=== PATIENT | female | born 1990 | race Caucasian/White ===

== ENCOUNTER 2020-07-23 10:02 | Outpatient (CLI) | payer BC | END 2020-07-23 10:03 | disposition home or self-care (01) | LOC: PET 10:02 | PROVIDERS: ATTEND Internal Medicine Hematology & Oncology | DX: C50.911 Malignant neoplasm of unspecified site of right female breast (principal); C78.7 Secondary malignant neoplasm of liver and intrahepatic bile duct; R59.0 Localized enlarged lymph nodes; R91.8 Other nonspecific abnormal finding of lung field | CPT/HCPCS: 78815; A9552 ==

== ENCOUNTER 2020-12-18 11:34 | Inpatient (IN) | payer BC ==
[2020-12-18] MEDS ORDERED: ALPRAZolam 0.5 MG TAB ONE (12:47)
[2020-12-18] MEDS ORDERED: Morphine 4 MG/ML VIAL ONE (12:47)
[2020-12-18 13:47] LABS: Hemoglobin 14.4 g/dL (12.0-16.0); Mean Corpuscular HGB CONC 33.4 g/dL (32.0-36.0); Mean Corpuscular Hemoglobin 30.7 pg (27.0-31.0); Mean Platelet Volume 7.1 fL (7.4-10.4); Platelet Count 456 thou/uL (130-400); RBC Distribution Width 10.9 % (11.5-14.5)
[2020-12-18 13:53] LABS: BHCG - Serum Negative (NEGATIVE); Pregs Control Background? CLEAR/WHITE (CLR/WHITE); Pregs Control Bar Appear? YES (CONTROL BAR)
[2020-12-18 14:03] LABS: ALT (SGPT) 16 U/L (8-55); AST (SGOT) 15 U/L (5-34); Albumin 3.5 g/dL (3.5-5.0); Alkaline Phosphatase 78 U/L (40-110); Anion Gap 12 mmol/L (10-20); BUN (Urea Nitrogen) 17 mg/dL (7.0-18.7); Bilirubin, Total 0.3 mg/dL (0.2-1.2); Calc. Creatinine Clearance 0 mL/min (70-130); Calcium 8.7 mg/dL (7.8-10.44); Carbon Dioxide 25 mmol/L (22-29); Chloride 103 mmol/L (98-107); Globulin 2.6 g/dL (2.4-3.5); Glucose 79 mg/dL (70-105); Potassium 4.3 mmol/L (3.5-5.1); Protein, Total 6.1 g/dL (6.0-8.3); Sodium 136 mmol/L (136-145)
[2020-12-18 14:31] LABS: Band 4 % (5-11); Lymphocytes 18 % (21-51); MDiff Complete? YES; Monocytes 17 % (0-10); Neutrophil 57 % (42-75); Platelet Morphology Comment Appears Increased; RBC Morphology Normal; Reactive Lymphocytes 4 % (0-10)
[2020-12-18] MEDS ORDERED: Iopamidol-370 76% 500 ML 1 ML ONE (14:50)
[2020-12-18] MEDS ORDERED: cefTRIAXone\\ROCEPHIN 1 GM VIAL ONE (15:04)
[2020-12-18 16:33] LABS: SARS-CoV-2 NAA Rapid Test Not Detected (NotDetected)
[2020-12-18 18:28] VITALS: BMI 16.5
[2020-12-18] MEDS ORDERED: Acetaminophen 325 MG TAB PO PRN (18:50)
[2020-12-18] MEDS ORDERED: HYDROcodone/Acetaminophen 5/325 mg Tablet PO PRN (18:50)
[2020-12-18] MEDS ORDERED: Bisacodyl 5 MG TAB PO PRN (18:50)
[2020-12-18] MEDS ORDERED: Ondansetron PF 4 MG/2 ML Vial IVP PRN (18:50)
[2020-12-18] MEDS ORDERED: HYDROcodone/Acetaminophen 10/325 mg Tablet PO PRN (18:50)
[2020-12-18] MEDS ORDERED: Senokot S 8.6-50 MG TAB PO PRN (18:50)
[2020-12-18] MEDS ORDERED: hydrOXYzine 25 MG TAB PO PRN (19:08)
[2020-12-18] MEDS ORDERED: traZODone HCl 50 MG TAB PO PRN (19:09)
[2020-12-18] MEDS ORDERED: Melatonin 3 MG TAB PO PRN (19:09)
[2020-12-18] MEDS ORDERED: ALPRAZolam 1 MG TAB PO SCH (19:30)
[2020-12-18] MEDS: methylPREDNISolone Sod Succ 40 MG VIAL IVP SCH (21:34)
[2020-12-19 05:50] LABS: #Lymphocytes 1.1 thou/uL (1.20-3.40); #Monocytes 0.6 thou/uL (0.11-0.59); #Neutrophils 5.4 thou/uL (1.40-6.50); %Basophils 0.5 % (0.0-1.0); %Eosinophils 0.1 % (0.0-10.0); %Lymphocytes 15.2 % (21.0-51.0); %Monocytes 7.7 % (0.0-10.0); %Neutrophils 76.4 % (42.0-75.0); Hemoglobin 14.7 g/dL (12.0-16.0); Mean Corpuscular HGB CONC 34.4 g/dL (32.0-36.0); Mean Corpuscular Hemoglobin 31.9 pg (27.0-31.0); Mean Corpuscular Volume 92.8 fL (78.0-98.0); Mean Platelet Volume 7.1 fL (7.4-10.4); Platelet Count 423 thou/uL (130-400); RBC Distribution Width 10.8 % (11.5-14.5); Red Blood Cell (RBC) Count 4.62 mill/uL (4.20-5.40)
[2020-12-19 06:03] LABS: Prothrombin Time 12.8 sec (12.0-14.7)
[2020-12-19 06:13] LABS: ALT (SGPT) 12 U/L (8-55); AST (SGOT) 13 U/L (5-34); Albumin 3.4 g/dL (3.5-5.0); Alkaline Phosphatase 78 U/L (40-110); Anion Gap 13 mmol/L (10-20); BUN (Urea Nitrogen) 16 mg/dL (7.0-18.7); Bilirubin, Total 0.5 mg/dL (0.2-1.2); Calc. Creatinine Clearance 78 mL/min (70-130); Calcium 9.1 mg/dL (7.8-10.44); Carbon Dioxide 26 mmol/L (22-29); Chloride 100 mmol/L (98-107); Globulin 2.5 g/dL (2.4-3.5); Glucose 103 mg/dL (70-105); Potassium 4.5 mmol/L (3.5-5.1); Protein, Total 5.9 g/dL (6.0-8.3); Sodium 134 mmol/L (136-145)
[2020-12-19] MEDS ORDERED: Prevnar 13-Val Conj/PF 0.5 ML SYRINGE IM ONE (09:00)
[2020-12-19] MEDS: methylPREDNISolone Sod Succ 40 MG VIAL IVP SCH ×2 (09:41→20:16)
[2020-12-19] MEDS ORDERED: cefTRIAXone\\ROCEPHIN 2 GM in Sodium Chloride 0.9% 100 ML IVPB SCH (15:00)
[2020-12-19] MEDS ORDERED: Morphine 2 MG/ML VIAL SLOW IVP PRN (15:19)
[2020-12-19] MEDS: Morphine 4 MG/ML VIAL SLOW IVP PRN ×2 (15:34→20:17)
[2020-12-19] MEDS ORDERED: Sodium Chloride 0.65% Nasal 44 ML BOT EA NARE PRN (18:29)
[2020-12-19] MEDS ORDERED: Electrolyte Replacement Protocol 1 EACH FS SCH (20:00)
[2020-12-20] MEDS: Morphine 4 MG/ML VIAL SLOW IVP PRN ×4 (01:15→23:38)
[2020-12-20 05:25] LABS: #Lymphocytes 0.7 thou/uL (1.20-3.40); #Monocytes 0.8 thou/uL (0.11-0.59); #Neutrophils 8.5 thou/uL (1.40-6.50); %Basophils 0.2 % (0.0-1.0); %Eosinophils 0.2 % (0.0-10.0); %Lymphocytes 7.1 % (21.0-51.0); %Monocytes 7.8 % (0.0-10.0); %Neutrophils 84.7 % (42.0-75.0); Hemoglobin 15.1 g/dL (12.0-16.0); Mean Corpuscular HGB CONC 33.9 g/dL (32.0-36.0); Mean Corpuscular Hemoglobin 31.3 pg (27.0-31.0); Mean Corpuscular Volume 92.3 fL (78.0-98.0); Mean Platelet Volume 7.2 fL (7.4-10.4); Platelet Count 442 thou/uL (130-400); Red Blood Cell (RBC) Count 4.83 mill/uL (4.20-5.40); White Blood Cell (WBC) Count 10.1 thou/uL (4.8-10.8)
[2020-12-20 05:48] LABS: ALT (SGPT) 13 U/L (8-55); AST (SGOT) 15 U/L (5-34); Albumin 3.5 g/dL (3.5-5.0); Alkaline Phosphatase 84 U/L (40-110); Anion Gap 14 mmol/L (10-20); BUN (Urea Nitrogen) 17 mg/dL (7.0-18.7); Bilirubin, Total 0.3 mg/dL (0.2-1.2); Calc. Creatinine Clearance 72 mL/min (70-130); Calcium 9.3 mg/dL (7.8-10.44); Carbon Dioxide 27 mmol/L (22-29); Chloride 97 mmol/L (98-107); Globulin 2.7 g/dL (2.4-3.5); Glucose 116 mg/dL (70-105); Magnesium 2.1 mg/dL (1.6-2.6); Phosphorus 4.3 mg/dL (2.3-4.7); Potassium 4.4 mmol/L (3.5-5.1); Protein, Total 6.2 g/dL (6.0-8.3); Sodium 134 mmol/L (136-145)
[2020-12-20] MEDS ORDERED: Sodium Bicarbonate 2.5 MEQ/5 ML VIAL ONE (10:16)
[2020-12-20] MEDS ORDERED: Lidocaine 1% PF 5 ML VIAL ONE (10:16)
[2020-12-20 11:48] LABS: Fluid, pH - Pleural Fld Greater than 7.50 (7.60 - 7.66)
[2020-12-20 11:50] LABS: Pleural Fluid, Amylase Less than 30 U/L (Not Available); Pleural Fluid, Glucose 105 mg/dL; Pleural Fluid, LDH 224 U/L (Not Available); Pleural Fluid, Protein 3.3 g/dL
[2020-12-20 12:13] LABS: RBC Count-Automated (BF) 300 /cu.mm; WBC/Nucleated-Auto (BF) 890 uL
[2020-12-20] MEDS: Lorazepam 0.5 MG TAB PO PRN (13:10)
[2020-12-20] MEDS: methylPREDNISolone Sod Succ 40 MG VIAL IVP SCH ×2 (13:13→23:39)
[2020-12-20 13:14] LABS: BF Color Yellow; Body Fluid Source Pleural Fluid; Clarity Hazy (Clear); Tube # EDTA
[2020-12-20 13:17] LABS: BF Segmented Neutrophils 3 %; Cell Count Non Hematic 28 %; Lymphocytes 69 %
[2020-12-20] MEDS: Folic Acid 1 MG TAB PO SCH (21:28)
[2020-12-20] MEDS: Cyanocobalamin (Vitamin B-12) 1,000 MCG TAB PO SCH (21:28)
[2020-12-21 08:11] LABS: #Lymphocytes 0.8 thou/uL (1.20-3.40); #Monocytes 0.4 thou/uL (0.11-0.59); %Basophils 0.1 % (0.0-1.0); %Eosinophils 0.2 % (0.0-10.0); %Lymphocytes 6.8 % (21.0-51.0); %Monocytes 3.8 % (0.0-10.0); %Neutrophils 89.1 % (42.0-75.0); Hemoglobin 15.6 g/dL (12.0-16.0); Mean Corpuscular HGB CONC 34.5 g/dL (32.0-36.0); Mean Corpuscular Volume 92.6 fL (78.0-98.0); Mean Platelet Volume 7.3 fL (7.4-10.4); Platelet Count 444 thou/uL (130-400); Red Blood Cell (RBC) Count 4.87 mill/uL (4.20-5.40); White Blood Cell (WBC) Count 11.2 thou/uL (4.8-10.8)
[2020-12-21 08:27] LABS: Anion Gap 10 mmol/L (10-20); BUN (Urea Nitrogen) 16 mg/dL (7.0-18.7); Calc. Creatinine Clearance 78 mL/min (70-130); Calcium 9.6 mg/dL (7.8-10.44); Carbon Dioxide 30 mmol/L (22-29); Chloride 96 mmol/L (98-107); Glucose 121 mg/dL (70-105); Potassium 4.6 mmol/L (3.5-5.1); Sodium 131 mmol/L (136-145)
[2020-12-21] MEDS: Multivit, Therapeutic 1 TAB PO SCH (08:54)
[2020-12-21] MEDS: methylPREDNISolone Sod Succ 40 MG VIAL IVP SCH ×2 (08:54→21:49)
[2020-12-21] MEDS: Morphine 4 MG/ML VIAL SLOW IVP PRN (12:20)
[2020-12-21] MEDS: Heparin 5,000 UNITS/ML VIAL SC SCH ×2 (12:35→21:54)
[2020-12-21] MEDS ORDERED: Chloraseptic Spray 180 ml Bottle PO PRN (15:01)
[2020-12-21] MEDS ORDERED: Aluminum & Magnesium Hydroxide 60 ML, diphenhydrAMINE 150 MG, Lidocaine 2% Viscous Solu... SSW PRN (15:03)
[2020-12-21] MEDS: Lorazepam 0.5 MG TAB PO PRN (15:23)
[2020-12-21] MEDS: Sodium Chloride 0.9% 1,000 ML IV SCH (15:50)
[2020-12-21] MEDS: HYDROcodone/Acetaminophen 10/325 mg Tablet PO PRN ×2 (18:09→21:48)
[2020-12-21] MEDS: Cyanocobalamin (Vitamin B-12) 1,000 MCG TAB PO SCH (21:49)
[2020-12-21] MEDS: Folic Acid 1 MG TAB PO SCH (21:54)
[2020-12-21] MEDS: Chloraseptic Spray 180 ml Bottle PO PRN (22:06)
[2020-12-22] MEDS: HYDROcodone/Acetaminophen 10/325 mg Tablet PO PRN (04:42)
[2020-12-22] MEDS: Sodium Chloride 0.9% 1,000 ML IV SCH (08:37)
[2020-12-22] MEDS: Multivit, Therapeutic 1 TAB PO SCH (08:40)
[2020-12-22] MEDS: methylPREDNISolone Sod Succ 40 MG VIAL IVP SCH ×2 (08:41→20:43)
[2020-12-22] MEDS: Heparin 5,000 UNITS/ML VIAL SC SCH ×2 (08:42→20:44)
[2020-12-22] MEDS: Chloraseptic Spray 180 ml Bottle PO PRN ×2 (08:43→20:44)
[2020-12-22] MEDS: Morphine 4 MG/ML VIAL SLOW IVP PRN ×4 (11:13→23:14)
[2020-12-22] MEDS: Lorazepam 0.5 MG TAB PO PRN ×2 (11:14→23:13)
[2020-12-22] MEDS: Folic Acid 1 MG TAB PO SCH (20:43)
[2020-12-22] MEDS: Cyanocobalamin (Vitamin B-12) 1,000 MCG TAB PO SCH (20:45)
[2020-12-23] MEDS: Lorazepam 0.5 MG TAB PO PRN ×2 (07:10→15:31)
[2020-12-23] MEDS: Morphine 4 MG/ML VIAL SLOW IVP PRN (07:11)
[2020-12-23] MEDS: methylPREDNISolone Sod Succ 40 MG VIAL IVP SCH (09:51)
[2020-12-23] MEDS: Multivit, Therapeutic 1 TAB PO SCH (09:51)
[2020-12-23] MEDS: Heparin 5,000 UNITS/ML VIAL SC SCH (09:56)
[2020-12-23] MEDS ORDERED: Sodium Chloride 0.9% 1,000 ML IV SCH (12:45)
[2020-12-23] MEDS: Chloraseptic Spray 180 ml Bottle PO PRN (14:02)
[2020-12-23 16:55] VITALS: BP 126/99; TEMP 98.6
== END 2020-12-23 17:45 | disposition home health service (06) | DRG 180 ==
LOC: ERS 11:34 → 2NO 15:16 → OBSVTOIN 12-19 14:42
PROVIDERS: ADMIT Family Medicine; ATTEND Hospitalist
PROC: 0W993ZZ Drainage of Right Pleural Cavity, Percutaneous Approach (ICD-10-PCS; principal; 2020-12-20)
DX: C78.2 Secondary malignant neoplasm of pleura (principal); J18.9 Pneumonia, unspecified organism; J96.01 Acute respiratory failure with hypoxia; E43 Unspecified severe protein-calorie malnutrition; I31.3 Pericardial effusion (noninflammatory); R64 Cachexia; Z68.1 Body mass index [BMI] 19.9 or less, adult; C78.00 Secondary malignant neoplasm of unspecified lung; C78.7 Secondary malignant neoplasm of liver and intrahepatic bile duct; C79.51 Secondary malignant neoplasm of bone; J91.0 Malignant pleural effusion; F41.9 Anxiety disorder, unspecified; F32.A Depression, unspecified; Z20.822 Contact with and (suspected) exposure to COVID-19; C50.919 Malignant neoplasm of unspecified site of unspecified female breast; E05.90 Thyrotoxicosis, unspecified without thyrotoxic crisis or storm; Z79.899 Other long term (current) drug therapy
CPT/HCPCS: 36415; 71045; 71046; 71275; 76942; 80048; 80053; 82150; 82945; 83605; 83615; 83735; 83880; 83986; 84100; 84157; 84484; 84703; 85025; 85060; 85610; 86606; 87070; 87205; 88112; 88305; 88341; 88342; 89051; 93005; 93306; 96365; 96375; G0378; J0696; J1644; J1956; J2270; J2405; J2920; J3490; J7050; Q0163; Q9967; U0002

== ENCOUNTER 2020-12-25 06:43 | Inpatient (IN) | payer BC ==
[2020-12-25] MEDS ORDERED: Lorazepam 2 MG/ML VIAL ONE (07:31)
[2020-12-25 07:49] LABS: #Basophils 0.1 thou/uL (0.0-0.2); #Lymphocytes 1.3 thou/uL (1.20-3.40); #Monocytes 1.1 thou/uL (0.11-0.59); #Neutrophils 14.4 thou/uL (1.40-6.50); %Basophils 0.5 % (0.0-1.0); %Eosinophils 0.3 % (0.0-10.0); %Lymphocytes 7.6 % (21.0-51.0); %Monocytes 6.2 % (0.0-10.0); %Neutrophils 85.4 % (42.0-75.0); Hemoglobin 15.5 g/dL (12.0-16.0); Mean Corpuscular Volume 88.4 fL (78.0-98.0); Platelet Count 396 thou/uL (130-400); RBC Distribution Width 10.8 % (11.5-14.5); Red Blood Cell (RBC) Count 5.01 mill/uL (4.20-5.40); White Blood Cell (WBC) Count 16.9 thou/uL (4.8-10.8)
[2020-12-25 08:07] LABS: ALT (SGPT) 30 U/L (8-55); AST (SGOT) 26 U/L (5-34); Albumin 3.7 g/dL (3.5-5.0); Alkaline Phosphatase 87 U/L (40-110); Anion Gap 10 mmol/L (10-20); BUN (Urea Nitrogen) 11 mg/dL (7.0-18.7); Bilirubin, Total 1.7 mg/dL (0.2-1.2); Calc. Creatinine Clearance 0 mL/min (70-130); Carbon Dioxide 29 mmol/L (22-29); Chloride 81 mmol/L (98-107); Globulin 2.7 g/dL (2.4-3.5); Glucose 111 mg/dL (70-105); Lipase 19 U/L (8-78); Protein, Total 6.4 g/dL (6.0-8.3)
[2020-12-25 08:13] LABS: Sodium 116 mmol/L (136-145)
[2020-12-25] MEDS ORDERED: Ondansetron PF 4 MG/2 ML Vial ONE (08:33)
[2020-12-25] MEDS ORDERED: Iopamidol-370 76% 500 ML 1 ML ONE (09:30)
[2020-12-25] MEDS ORDERED: HYDROcodone/Acetaminophen 5/325 mg Tablet PO PRN (10:28)
[2020-12-25] MEDS ORDERED: Calcium Carbonate 500 MG ChewTAB PO PRN (10:28)
[2020-12-25] MEDS ORDERED: Bisacodyl 10 MG SUPP PR PRN (10:28)
[2020-12-25] MEDS ORDERED: Guaifenesin DM 100-10/5 ML UDCUP PO PRN (10:28)
[2020-12-25] MEDS: Morphine IR Tab 15 MG TAB PO SCH ×2 (12:11→18:17)
[2020-12-25] MEDS: Lorazepam 0.5 MG TAB PO PRN ×2 (13:10→19:35)
[2020-12-25] MEDS: Ondansetron PF 4 MG/2 ML Vial IVP PRN (13:22)
[2020-12-25 15:51] LABS: SARS-CoV-2 NAA Rapid Test Not Detected (NotDetected)
[2020-12-25 18:39] LABS: Anion Gap 12 mmol/L (10-20); BUN (Urea Nitrogen) 11 mg/dL (7.0-18.7); Calc. Creatinine Clearance 84 mL/min (70-130); Calcium 8.7 mg/dL (7.8-10.44); Carbon Dioxide 28 mmol/L (22-29); Chloride 83 mmol/L (98-107); Glucose 124 mg/dL (70-105)
[2020-12-25 19:02] LABS: Sodium 119 mmol/L (136-145)
[2020-12-25 19:51] LABS: Bacteria/HPF None Seen HPF (None Seen); Bilirubin Negative (Negative); Blood, Urine Negative (Negative); Clarity Turbid (Clear); Glucose, Urine (Dipstick) Normal (Negative); Ketone, Urine 10 mg/dL (Negative); Leukocyte Negative Leu/uL (Negative); Nitrite Negative (Negative); Protein, Urine (Dipstick) Negative (Neg-Trace); RBC/HPF 0-3 HPF (0-3); Squamous Epithelial 0-3 HPF (0-3); Urobilinogen Normal mg/dL (Less than 2); WBC/HPF 0-3 HPF (0-3); pH, Urine 7.5 (5.0-9.0)
[2020-12-25] MEDS: Morphine ER 15 MG TAB PO SCH (21:29)
[2020-12-25] MEDS: Senokot S 8.6-50 MG TAB PO SCH (21:29)
[2020-12-26] MEDS: Morphine IR Tab 15 MG TAB PO SCH ×2 (01:58→06:18)
[2020-12-26 04:53] LABS: Albumin 3.5 g/dL (3.5-5.0); Anion Gap 14 mmol/L (10-20); BUN (Urea Nitrogen) 12 mg/dL (7.0-18.7); BUN/Creatinine Ratio 19.35; Calc. Creatinine Clearance 83 mL/min (70-130); Calcium 8.7 mg/dL (7.8-10.44); Carbon Dioxide 26 mmol/L (22-29); Chloride 83 mmol/L (98-107); Glucose 99 mg/dL (70-105); Phosphorus 3.4 mg/dL (2.3-4.7); Potassium 4.9 mmol/L (3.5-5.1)
[2020-12-26 04:56] LABS: Sodium 118 mmol/L (136-145)
[2020-12-26 05:33] LABS: #Basophils 0.1 thou/uL (0.0-0.2); #Eosinphils 0.1 thou/uL (0.0-0.7); #Lymphocytes 1.6 thou/uL (1.20-3.40); #Monocytes 1.7 thou/uL (0.11-0.59); #Neutrophils 13.5 thou/uL (1.40-6.50); %Basophils 0.5 % (0.0-1.0); %Eosinophils 0.6 % (0.0-10.0); %Lymphocytes 9.3 % (21.0-51.0); %Monocytes 10.1 % (0.0-10.0); %Neutrophils 79.5 % (42.0-75.0); Hemoglobin 14.2 g/dL (12.0-16.0); Mean Corpuscular HGB CONC 35.1 g/dL (32.0-36.0); Mean Corpuscular Hemoglobin 30.8 pg (27.0-31.0); Mean Corpuscular Volume 87.8 fL (78.0-98.0); Mean Platelet Volume 7.6 fL (7.4-10.4); Platelet Count 375 thou/uL (130-400); RBC Distribution Width 10.8 % (11.5-14.5)
[2020-12-26] MEDS ORDERED: TOLVAPTAN 30 MG TAB PO SCH (08:45)
[2020-12-26] MEDS: Senokot S 8.6-50 MG TAB PO SCH ×2 (09:37→20:56)
[2020-12-26] MEDS: Enoxaparin Sodium 40 MG/0.4 ML SYRINGE SC SCH (09:50)
[2020-12-26] MEDS: Morphine ER 15 MG TAB PO SCH (09:50)
[2020-12-26 09:59] LABS: Anion Gap 11 mmol/L (10-20); BUN (Urea Nitrogen) 11 mg/dL (7.0-18.7); Calc. Creatinine Clearance 92 mL/min (70-130); Calcium 8.3 mg/dL (7.8-10.44); Carbon Dioxide 25 mmol/L (22-29); Chloride 83 mmol/L (98-107); Glucose 101 mg/dL (70-105); Potassium 4.5 mmol/L (3.5-5.1)
[2020-12-26 10:06] LABS: Sodium 114 mmol/L (136-145)
[2020-12-26 13:17] LABS: Anion Gap 13 mmol/L (10-20); BUN (Urea Nitrogen) 11 mg/dL (7.0-18.7); Calc. Creatinine Clearance 88 mL/min (70-130); Calcium 8.5 mg/dL (7.8-10.44); Carbon Dioxide 26 mmol/L (22-29); Chloride 81 mmol/L (98-107); Glucose 104 mg/dL (70-105); Magnesium 1.9 mg/dL (1.6-2.6); Potassium 4.4 mmol/L (3.5-5.1)
[2020-12-26 13:20] LABS: Sodium 116 mmol/L (136-145)
[2020-12-26] MEDS: Lorazepam 0.5 MG TAB PO PRN (14:19)
[2020-12-26] MEDS: Morphine IR Tab 15 MG TAB PO PRN (16:06)
[2020-12-26] MEDS ORDERED: BIOTENE MOUTH SPRAY 44.3 ML MM PRN (16:18)
[2020-12-26 19:42] LABS: Anion Gap 15 mmol/L (10-20); BUN (Urea Nitrogen) 10 mg/dL (7.0-18.7); Calc. Creatinine Clearance 87 mL/min (70-130); Calcium 8.6 mg/dL (7.8-10.44); Carbon Dioxide 25 mmol/L (22-29); Chloride 79 mmol/L (98-107); Glucose 113 mg/dL (70-105); Potassium 4.9 mmol/L (3.5-5.1)
[2020-12-26 20:04] LABS: Sodium 114 mmol/L (136-145)
[2020-12-26] MEDS ORDERED: Sodium Chloride 3% 500 ML IVPB SCH ×2 (21:45→22:00)
[2020-12-26] MEDS ORDERED: Morphine 4 MG/ML VIAL ONE (22:06)
[2020-12-26 23:39] LABS: Sodium 119 mmol/L (136-145)
[2020-12-27] MEDS: Morphine IR Tab 15 MG TAB PO PRN ×2 (01:59→10:06)
[2020-12-27 06:36] LABS: Anion Gap 18 mmol/L (10-20); BUN (Urea Nitrogen) 9 mg/dL (7.0-18.7); Calc. Creatinine Clearance 93 mL/min (70-130); Calcium 9.1 mg/dL (7.8-10.44); Carbon Dioxide 25 mmol/L (22-29); Chloride 83 mmol/L (98-107); Glucose 91 mg/dL (70-105); Potassium 4.6 mmol/L (3.5-5.1); Sodium 121 mmol/L (136-145)
[2020-12-27] MEDS ORDERED: Midazolam HCl 2 mg/2 ml Vial ONE ×2 (07:00→07:01)
[2020-12-27] MEDS ORDERED: Fentanyl 100 MCG/2 ML VIAL ONE (07:01)
[2020-12-27] MEDS ORDERED: Propofol 500 MG/50 ML VIAL ONE (07:01)
[2020-12-27] MEDS ORDERED: Ketamine 50 MG/ML (10ML VIAL) ONE (07:01)
[2020-12-27] MEDS ORDERED: ceFAZolin 2 GM/DEX 5% 100 ML BAG ONE (07:17)
[2020-12-27] MEDS ORDERED: Tolvaptan 15 MG TAB PO SCH (07:45)
[2020-12-27] MEDS ORDERED: SODIUM CHLORIDE 0.9% IVPB SCH (08:00)
[2020-12-27] MEDS ORDERED: Dexamethasone 10 MG in Sodium Chloride 0.9% 50 ML IVPB SCH (08:00)
[2020-12-27] MEDS ORDERED: PACLITAXEL IVPB SCH (08:00)
[2020-12-27] MEDS ORDERED: TOLVAPTAN 30 MG TAB PO SCH (08:30)
[2020-12-27] MEDS: Senokot S 8.6-50 MG TAB PO SCH ×2 (10:05→20:24)
[2020-12-27] MEDS: Enoxaparin Sodium 40 MG/0.4 ML SYRINGE SC SCH (10:09)
[2020-12-27 14:52] LABS: Anion Gap 18 mmol/L (10-20); BUN (Urea Nitrogen) 9 mg/dL (7.0-18.7); Calc. Creatinine Clearance 90 mL/min (70-130); Calcium 8.9 mg/dL (7.8-10.44); Carbon Dioxide 24 mmol/L (22-29); Chloride 88 mmol/L (98-107); Glucose 116 mg/dL (70-105); Potassium 4.5 mmol/L (3.5-5.1); Sodium 125 mmol/L (136-145)
[2020-12-27] MEDS: Lorazepam 0.5 MG TAB PO PRN (14:56)
[2020-12-27] MEDS: Dronabinol 2.5 MG CAP PO PRN (16:38)
[2020-12-27] MEDS: clonazePAM 0.5 MG TAB PO SCH ×2 (22:40→23:10)
[2020-12-28] MEDS ORDERED: Metoprolol Tartrate 50 MG TAB PO SCH (01:30)
[2020-12-28] MEDS: Prochlorperazine Maleate 5 MG TAB PO PRN (05:04)
[2020-12-28 05:49] LABS: Anion Gap 15 mmol/L (10-20); BUN (Urea Nitrogen) 11 mg/dL (7.0-18.7); Calc. Creatinine Clearance 84 mL/min (70-130); Calcium 9.2 mg/dL (7.8-10.44); Carbon Dioxide 30 mmol/L (22-29); Chloride 98 mmol/L (98-107); Glucose 116 mg/dL (70-105); Potassium 4.7 mmol/L (3.5-5.1); Sodium 138 mmol/L (136-145)
[2020-12-28] MEDS: Morphine IR Tab 15 MG TAB PO PRN (05:50)
[2020-12-28] MEDS: Enoxaparin Sodium 40 MG/0.4 ML SYRINGE SC SCH (10:06)
[2020-12-28] MEDS: clonazePAM 0.5 MG TAB PO SCH ×2 (10:06→22:00)
[2020-12-28] MEDS: Senokot S 8.6-50 MG TAB PO SCH ×2 (10:07→22:01)
[2020-12-28] MEDS ORDERED: Furosemide 40 MG/4 ML VIAL SLOW IVP SCH (10:30)
[2020-12-28] MEDS ORDERED: Dextrose 5% in Water 1,000 ML IV SCH (10:45)
[2020-12-28] MEDS: Acetaminophen 325 MG TAB PO PRN ×2 (11:47→19:04)
[2020-12-28 13:02] LABS: Hemoglobin 13.3 g/dL (12.0-16.0); Mean Corpuscular HGB CONC 35.5 g/dL (32.0-36.0); Mean Corpuscular Hemoglobin 32.3 pg (27.0-31.0); Mean Corpuscular Volume 90.9 fL (78.0-98.0); Mean Platelet Volume 8.1 fL (7.4-10.4); Platelet Count 267 thou/uL (130-400); RBC Distribution Width 11.3 % (11.5-14.5); Red Blood Cell (RBC) Count 4.12 mill/uL (4.20-5.40); White Blood Cell (WBC) Count 22.3 thou/uL (4.8-10.8)
[2020-12-28 13:21] LABS: Band 4 % (5-11); MDiff Complete? YES; Monocytes 4 % (0-10); Neutrophil 90 % (42-75); Platelet Morphology Comment Appears Adequate; RBC Morphology Normal; Reactive Lymphocytes 2 % (0-10)
[2020-12-28 13:22] LABS: Anion Gap 13 mmol/L (10-20); BUN (Urea Nitrogen) 12 mg/dL (7.0-18.7); Calc. Creatinine Clearance 79 mL/min (70-130); Carbon Dioxide 30 mmol/L (22-29); Chloride 95 mmol/L (98-107); Glucose 189 mg/dL (70-105); Potassium 4.2 mmol/L (3.5-5.1); Sodium 134 mmol/L (136-145)
[2020-12-28 16:54] LABS: Anion Gap 11 mmol/L (10-20); BUN (Urea Nitrogen) 10 mg/dL (7.0-18.7); Calc. Creatinine Clearance 89 mL/min (70-130); Carbon Dioxide 31 mmol/L (22-29); Chloride 94 mmol/L (98-107); Glucose 127 mg/dL (70-105); Potassium 4.1 mmol/L (3.5-5.1); Sodium 132 mmol/L (136-145)
[2020-12-28] MEDS: Dronabinol 2.5 MG CAP PO PRN (19:04)
[2020-12-28] MEDS: Ondansetron PF 4 MG/2 ML Vial IVP PRN (20:59)
[2020-12-28] MEDS ORDERED: Morphine 4 MG/ML VIAL SLOW IVP PRN (21:48)
[2020-12-28] MEDS: Morphine 4 MG/ML VIAL SLOW IVP PRN ×2 (22:00→23:52)
[2020-12-29] MEDS: Morphine 4 MG/ML VIAL SLOW IVP PRN ×4 (04:02→21:28)
[2020-12-29 04:04] LABS: #Lymphocytes 1.2 thou/uL (1.20-3.40); #Monocytes 0.8 thou/uL (0.11-0.59); #Neutrophils 13.8 thou/uL (1.40-6.50); %Basophils 0.2 % (0.0-1.0); %Eosinophils 0.1 % (0.0-10.0); %Lymphocytes 7.6 % (21.0-51.0); %Monocytes 4.8 % (0.0-10.0); %Neutrophils 87.3 % (42.0-75.0); Hemoglobin 12.9 g/dL (12.0-16.0); Mean Corpuscular HGB CONC 35.4 g/dL (32.0-36.0); Mean Corpuscular Hemoglobin 32.2 pg (27.0-31.0); Mean Corpuscular Volume 90.9 fL (78.0-98.0); Mean Platelet Volume 8.2 fL (7.4-10.4); Platelet Count 266 thou/uL (130-400); RBC Distribution Width 11.2 % (11.5-14.5); Red Blood Cell (RBC) Count 3.99 mill/uL (4.20-5.40); White Blood Cell (WBC) Count 15.9 thou/uL (4.8-10.8)
[2020-12-29 04:21] LABS: Anion Gap 12 mmol/L (10-20); BUN (Urea Nitrogen) 9 mg/dL (7.0-18.7); Calc. Creatinine Clearance 94 mL/min (70-130); Calcium 8.7 mg/dL (7.8-10.44); Carbon Dioxide 32 mmol/L (22-29); Chloride 95 mmol/L (98-107); Glucose 104 mg/dL (70-105); Potassium 4.2 mmol/L (3.5-5.1); Sodium 135 mmol/L (136-145)
[2020-12-29] MEDS: Senokot S 8.6-50 MG TAB PO SCH ×2 (09:28→21:16)
[2020-12-29] MEDS: clonazePAM 0.5 MG TAB PO SCH ×2 (09:38→22:13)
[2020-12-29] MEDS: Enoxaparin Sodium 40 MG/0.4 ML SYRINGE SC SCH (13:02)
[2020-12-29] MEDS: Acetaminophen 325 MG TAB PO PRN (14:08)
[2020-12-29] MEDS ORDERED: Nystatin 500,000 UNITS/5 ML UDCUP SSW SCH (15:30)
[2020-12-29] MEDS: Nystatin 500,000 UNITS/5 ML UDCUP SSW SCH ×2 (17:43→21:17)
[2020-12-29] MEDS ORDERED: Metoprolol Tartrate 50 MG TAB PO SCH (21:15)
[2020-12-30] MEDS: Morphine 4 MG/ML VIAL SLOW IVP PRN ×3 (04:00→21:42)
[2020-12-30 04:28] LABS: %Eosinophils 0.5 % (0.0-10.0); %Lymphocytes 8.2 % (21.0-51.0); %Monocytes 3.2 % (0.0-10.0); %Neutrophils 87.7 % (42.0-75.0); Hemoglobin 12.9 g/dL (12.0-16.0); Mean Corpuscular HGB CONC 34.5 g/dL (32.0-36.0); Mean Corpuscular Hemoglobin 31.5 pg (27.0-31.0); Mean Corpuscular Volume 91.5 fL (78.0-98.0); Platelet Count 291 thou/uL (130-400); RBC Distribution Width 11.2 % (11.5-14.5); Red Blood Cell (RBC) Count 4.08 mill/uL (4.20-5.40); White Blood Cell (WBC) Count 13.3 thou/uL (4.8-10.8)
[2020-12-30 04:29] LABS: #Basophils 0.1 thou/uL (0.0-0.2); #Eosinphils 0.1 thou/uL (0.0-0.7); #Lymphocytes 1.1 thou/uL (1.20-3.40); #Monocytes 0.4 thou/uL (0.11-0.59); #Neutrophils 11.7 thou/uL (1.40-6.50); %Basophils 0.5 % (0.0-1.0)
[2020-12-30] MEDS: Nystatin 500,000 UNITS/5 ML UDCUP SSW SCH ×4 (08:44→21:35)
[2020-12-30] MEDS: Enoxaparin Sodium 40 MG/0.4 ML SYRINGE SC SCH (08:45)
[2020-12-30] MEDS: clonazePAM 0.5 MG TAB PO SCH ×2 (08:45→21:39)
[2020-12-30] MEDS: Senokot S 8.6-50 MG TAB PO SCH ×2 (11:47→21:35)
[2020-12-30] MEDS ORDERED: methylPREDNISolone Sod Succ/PF 125 MG/2 ML VIAL IVP SCH (13:30)
[2020-12-30 14:51] VITALS: BMI 16.2
[2020-12-30] MEDS ORDERED: Metoprolol Tartrate 50 MG TAB PO SCH (19:45)
[2020-12-31 04:48] LABS: #Lymphocytes 0.4 thou/uL (1.20-3.40); #Neutrophils 3.8 thou/uL (1.40-6.50); %Basophils 0.5 % (0.0-1.0); %Eosinophils 0.2 % (0.0-10.0); %Lymphocytes 8.7 % (21.0-51.0); %Monocytes 0.5 % (0.0-10.0); %Neutrophils 90.1 % (42.0-75.0); Hemoglobin 13.9 g/dL (12.0-16.0); Mean Corpuscular HGB CONC 33.3 g/dL (32.0-36.0); Mean Corpuscular Hemoglobin 30.9 pg (27.0-31.0); Mean Corpuscular Volume 92.8 fL (78.0-98.0); Mean Platelet Volume 8.1 fL (7.4-10.4); Platelet Count 302 thou/uL (130-400); RBC Distribution Width 11.3 % (11.5-14.5); Red Blood Cell (RBC) Count 4.49 mill/uL (4.20-5.40); White Blood Cell (WBC) Count 4.3 thou/uL (4.8-10.8)
[2020-12-31] MEDS: Lorazepam 0.5 MG TAB PO PRN ×2 (05:28→13:42)
[2020-12-31] MEDS ORDERED: GUAIFENESIN SF SOLN 200 MG/10 ML UDCUP PO PRN (08:46)
[2020-12-31] MEDS: Senokot S 8.6-50 MG TAB PO SCH ×2 (08:46→21:21)
[2020-12-31] MEDS: Nystatin 500,000 UNITS/5 ML UDCUP SSW SCH ×4 (08:46→21:22)
[2020-12-31] MEDS: clonazePAM 0.5 MG TAB PO SCH ×2 (08:47→21:22)
[2020-12-31] MEDS: Enoxaparin Sodium 40 MG/0.4 ML SYRINGE SC SCH (08:47)
[2020-12-31] MEDS ORDERED: Furosemide 40 MG/4 ML VIAL SLOW IVP SCH ×2 (09:15→13:45)
[2020-12-31] MEDS ORDERED: Polyethylene Glycol 3350 17 GM Packet PO SCH (09:45)
[2020-12-31] MEDS: Dronabinol 2.5 MG CAP PO PRN (10:38)
[2020-12-31] MEDS: Scopolamine 1.5 mg/72 hour Patch TD SCH (11:45)
[2020-12-31] MEDS ORDERED: Piperacillin/Tazobactam 3.375 GM in Sodium Chloride 0.9% 100 ML IVPB SCH (12:00)
[2020-12-31] MEDS: Morphine 4 MG/ML VIAL SLOW IVP PRN (14:17)
[2020-12-31] MEDS: Morphine IR Tab 15 MG TAB PO PRN (19:08)
[2021-01-01] MEDS ORDERED: Vancomycin HCl 500 MG VIAL ONE (06:17)
[2021-01-01] MEDS: Morphine IR Tab 15 MG TAB PO PRN ×2 (06:39→19:46)
[2021-01-01] MEDS: Lorazepam 0.5 MG TAB PO PRN ×2 (06:39→16:56)
[2021-01-01 08:12] LABS: #Basophils 0.1 thou/uL (0.0-0.2); #Eosinphils 0.1 thou/uL (0.0-0.7); #Lymphocytes 1.1 thou/uL (1.20-3.40); #Monocytes 0.3 thou/uL (0.11-0.59); #Neutrophils 10.4 thou/uL (1.40-6.50); %Basophils 0.5 % (0.0-1.0); %Eosinophils 0.7 % (0.0-10.0); %Lymphocytes 9.4 % (21.0-51.0); %Monocytes 2.8 % (0.0-10.0); %Neutrophils 86.7 % (42.0-75.0); Hemoglobin 14.1 g/dL (12.0-16.0); Mean Corpuscular Hemoglobin 31.1 pg (27.0-31.0); Mean Corpuscular Volume 91.3 fL (78.0-98.0); Mean Platelet Volume 7.4 fL (7.4-10.4); Platelet Count 341 thou/uL (130-400); RBC Distribution Width 11.1 % (11.5-14.5); Red Blood Cell (RBC) Count 4.55 mill/uL (4.20-5.40)
[2021-01-01] MEDS: Senokot S 8.6-50 MG TAB PO SCH ×2 (08:13→20:48)
[2021-01-01] MEDS: Nystatin 500,000 UNITS/5 ML UDCUP SSW SCH ×4 (08:13→20:48)
[2021-01-01] MEDS: clonazePAM 0.5 MG TAB PO SCH ×2 (08:13→20:48)
[2021-01-01] MEDS: Enoxaparin Sodium 40 MG/0.4 ML SYRINGE SC SCH (08:14)
[2021-01-01 09:02] LABS: ALT (SGPT) 20 U/L (8-55); AST (SGOT) 23 U/L (5-34); Albumin 3.3 g/dL (3.5-5.0); Alkaline Phosphatase 73 U/L (40-110); Anion Gap 18 mmol/L (10-20); BUN (Urea Nitrogen) 16 mg/dL (7.0-18.7); Bilirubin, Total 0.4 mg/dL (0.2-1.2); Calc. Creatinine Clearance 84 mL/min (70-130); Calcium 9.1 mg/dL (7.8-10.44); Carbon Dioxide 30 mmol/L (22-29); Chloride 90 mmol/L (98-107); Globulin 2.6 g/dL (2.4-3.5); Glucose 159 mg/dL (70-105); Magnesium 1.9 mg/dL (1.6-2.6); Potassium 4.1 mmol/L (3.5-5.1); Protein, Total 5.9 g/dL (6.0-8.3); Sodium 134 mmol/L (136-145)
[2021-01-01] MEDS ORDERED: Piperacillin/Tazobactam 3.375 GM in Sodium Chloride 0.9% 100 ML IVPB SCH ×3 (15:30→20:00)
[2021-01-01] MEDS: Prochlorperazine Maleate 5 MG TAB PO PRN (16:56)
[2021-01-01] MEDS: Aluminum & Magnesium Hydroxide 60 ML, Lidocaine 2% Viscous Solution 30 ML, diphenhydrAM... SSW PRN (20:49)
[2021-01-01 23:50] LABS: SARS-CoV-2 PCR by NAA Not Detected (NotDetected)
[2021-01-01] MEDS: Piperacillin/Tazobactam 3.375 GM in Sodium Chloride 0.9% 100 ML IVPB SCH (23:58)
[2021-01-02 04:02] LABS: #Basophils 0.1 thou/uL (0.0-0.2); #Eosinphils 0.2 thou/uL (0.0-0.7); #Lymphocytes 1.5 thou/uL (1.20-3.40); #Monocytes 0.2 thou/uL (0.11-0.59); %Eosinophils 3.5 % (0.0-10.0); %Lymphocytes 25.2 % (21.0-51.0); %Monocytes 2.7 % (0.0-10.0); %Neutrophils 67.6 % (42.0-75.0); Hemoglobin 12.1 g/dL (12.0-16.0); Mean Corpuscular HGB CONC 34.2 g/dL (32.0-36.0); Mean Corpuscular Hemoglobin 31.6 pg (27.0-31.0); Mean Corpuscular Volume 92.4 fL (78.0-98.0); Mean Platelet Volume 7.3 fL (7.4-10.4); Platelet Count 258 thou/uL (130-400); RBC Distribution Width 11.1 % (11.5-14.5); Red Blood Cell (RBC) Count 3.82 mill/uL (4.20-5.40); White Blood Cell (WBC) Count 5.9 thou/uL (4.8-10.8)
[2021-01-02 04:38] LABS: Chloride 94 mmol/L (98-107); Potassium 3.7 mmol/L (3.5-5.1); Sodium 139 mmol/L (136-145)
[2021-01-02 04:39] LABS: Calcium 8.8 mg/dL (7.8-10.44); Glucose 97 mg/dL (70-105)
[2021-01-02 04:40] LABS: Globulin 2.1 g/dL (2.4-3.5); Protein, Total 5.1 g/dL (6.0-8.3)
[2021-01-02 04:41] LABS: Bilirubin, Total 0.7 mg/dL (0.2-1.2); Carbon Dioxide 36 mmol/L (22-29)
[2021-01-02 04:42] LABS: Alkaline Phosphatase 62 U/L (40-110)
[2021-01-02 04:43] LABS: BUN (Urea Nitrogen) 11 mg/dL (7.0-18.7); Calc. Creatinine Clearance 89 mL/min (70-130)
[2021-01-02 04:44] LABS: AST (SGOT) 20 U/L (5-34)
[2021-01-02 04:45] LABS: ALT (SGPT) 16 U/L (8-55)
[2021-01-02 04:48] LABS: Anion Gap 13 mmol/L (10-20)
[2021-01-02] MEDS: Lorazepam 0.5 MG TAB PO PRN ×3 (05:47→23:19)
[2021-01-02] MEDS: Senokot S 8.6-50 MG TAB PO SCH ×2 (08:35→21:39)
[2021-01-02] MEDS: Piperacillin/Tazobactam 3.375 GM in Sodium Chloride 0.9% 100 ML IVPB SCH ×4 (08:35→23:58)
[2021-01-02] MEDS: clonazePAM 0.5 MG TAB PO SCH ×2 (08:38→21:40)
[2021-01-02] MEDS: Enoxaparin Sodium 40 MG/0.4 ML SYRINGE SC SCH (08:38)
[2021-01-02] MEDS: Nystatin 500,000 UNITS/5 ML UDCUP SSW SCH ×4 (08:38→21:39)
[2021-01-02] MEDS: Aluminum & Magnesium Hydroxide 60 ML, Lidocaine 2% Viscous Solution 30 ML, diphenhydrAM... SSW PRN (08:59)
[2021-01-02] MEDS ORDERED: predniSONE 20 MG TAB PO SCH (09:45)
[2021-01-02 10:02] LABS: Sodium 138 mmol/L (136-145)
[2021-01-02] MEDS ORDERED: Sodium Chloride 0.9% (PF) 10 ML VIAL FS PRN (10:15)
[2021-01-02] MEDS ORDERED: Pantoprazole 40 MG VIAL IVP SCH (10:15)
[2021-01-02] MEDS: Morphine IR Tab 15 MG TAB PO PRN ×2 (12:08→23:16)
[2021-01-02] MEDS: Pantoprazole 40 MG VIAL IVP SCH (21:40)
[2021-01-03 05:47] LABS: #Basophils 0.1 thou/uL (0.0-0.2); #Eosinphils 0.3 thou/uL (0.0-0.7); #Lymphocytes 1.2 thou/uL (1.20-3.40); #Monocytes 0.3 thou/uL (0.11-0.59); #Neutrophils 3.7 thou/uL (1.40-6.50); %Basophils 1.1 % (0.0-1.0); %Eosinophils 4.8 % (0.0-10.0); %Lymphocytes 20.9 % (21.0-51.0); %Monocytes 5.3 % (0.0-10.0); Hemoglobin 11.4 g/dL (12.0-16.0); Mean Corpuscular HGB CONC 34.7 g/dL (32.0-36.0); Mean Corpuscular Hemoglobin 32.2 pg (27.0-31.0); Mean Corpuscular Volume 92.8 fL (78.0-98.0); Mean Platelet Volume 7.6 fL (7.4-10.4); Platelet Count 285 thou/uL (130-400); RBC Distribution Width 11.1 % (11.5-14.5); Red Blood Cell (RBC) Count 3.56 mill/uL (4.20-5.40); White Blood Cell (WBC) Count 5.5 thou/uL (4.8-10.8)
[2021-01-03 06:08] LABS: ALT (SGPT) 20 U/L (8-55); AST (SGOT) 22 U/L (5-34); Albumin 2.9 g/dL (3.5-5.0); Alkaline Phosphatase 58 U/L (40-110); Anion Gap 9 mmol/L (10-20); BUN (Urea Nitrogen) 12 mg/dL (7.0-18.7); Bilirubin, Total 0.4 mg/dL (0.2-1.2); Calc. Creatinine Clearance 97 mL/min (70-130); Calcium 8.8 mg/dL (7.8-10.44); Carbon Dioxide 36 mmol/L (22-29); Chloride 97 mmol/L (98-107); Glucose 96 mg/dL (70-105); Potassium 3.8 mmol/L (3.5-5.1); Protein, Total 4.9 g/dL (6.0-8.3); Sodium 138 mmol/L (136-145)
[2021-01-03] MEDS: Pantoprazole 40 MG VIAL IVP SCH ×2 (08:58→20:56)
[2021-01-03] MEDS ORDERED: SODIUM CHLORIDE 0.9% IVPB SCH (09:00)
[2021-01-03] MEDS ORDERED: PACLITAXEL IVPB SCH (09:00)
[2021-01-03] MEDS: Senokot S 8.6-50 MG TAB PO SCH ×2 (09:01→20:56)
[2021-01-03] MEDS: clonazePAM 0.5 MG TAB PO SCH ×2 (09:02→20:56)
[2021-01-03] MEDS: Nystatin 500,000 UNITS/5 ML UDCUP SSW SCH ×4 (09:03→20:56)
[2021-01-03] MEDS: Enoxaparin Sodium 40 MG/0.4 ML SYRINGE SC SCH (09:05)
[2021-01-03] MEDS: Piperacillin/Tazobactam 3.375 GM in Sodium Chloride 0.9% 100 ML IVPB SCH ×3 (09:07→23:08)
[2021-01-03] MEDS: Scopolamine 1.5 mg/72 hour Patch TD SCH (12:24)
[2021-01-03] MEDS: Lorazepam 0.5 MG TAB PO PRN (12:39)
[2021-01-03] MEDS: Morphine 4 MG/ML VIAL SLOW IVP PRN (18:07)
[2021-01-04 05:21] LABS: #Lymphocytes 0.4 thou/uL (1.20-3.40); #Monocytes 0.1 thou/uL (0.11-0.59); #Neutrophils 5.5 thou/uL (1.40-6.50); %Basophils 0.4 % (0.0-1.0); %Eosinophils 0.1 % (0.0-10.0); %Monocytes 1.5 % (0.0-10.0); Hemoglobin 11.6 g/dL (12.0-16.0); Mean Corpuscular Hemoglobin 32.3 pg (27.0-31.0); Mean Corpuscular Volume 92.1 fL (78.0-98.0); Mean Platelet Volume 7.9 fL (7.4-10.4); Platelet Count 305 thou/uL (130-400); RBC Distribution Width 11.2 % (11.5-14.5); Red Blood Cell (RBC) Count 3.59 mill/uL (4.20-5.40)
[2021-01-04 05:42] LABS: ALT (SGPT) 24 U/L (8-55); AST (SGOT) 27 U/L (5-34); Albumin 3.1 g/dL (3.5-5.0); Alkaline Phosphatase 59 U/L (40-110); Anion Gap 14 mmol/L (10-20); BUN (Urea Nitrogen) 11 mg/dL (7.0-18.7); Bilirubin, Total 0.4 mg/dL (0.2-1.2); Calc. Creatinine Clearance 92 mL/min (70-130); Calcium 8.7 mg/dL (7.8-10.44); Carbon Dioxide 29 mmol/L (22-29); Chloride 102 mmol/L (98-107); Globulin 2.3 g/dL (2.4-3.5); Glucose 98 mg/dL (70-105); Potassium 4.5 mmol/L (3.5-5.1); Protein, Total 5.4 g/dL (6.0-8.3); Sodium 140 mmol/L (136-145)
[2021-01-04] MEDS ORDERED: predniSONE 20 MG TAB PO SCH (08:00)
[2021-01-04 08:06] VITALS: BP 108/75; TEMP 97.4
[2021-01-04] MEDS: Enoxaparin Sodium 40 MG/0.4 ML SYRINGE SC SCH (08:20)
[2021-01-04] MEDS: Nystatin 500,000 UNITS/5 ML UDCUP SSW SCH ×3 (08:20→16:22)
[2021-01-04] MEDS: clonazePAM 0.5 MG TAB PO SCH (08:20)
[2021-01-04] MEDS: Pantoprazole 40 MG VIAL IVP SCH (08:20)
[2021-01-04] MEDS: Senokot S 8.6-50 MG TAB PO SCH (08:21)
[2021-01-04] MEDS ORDERED: Amoxicillin/Potassium Clav 875 MG TAB PO SCH (09:00)
[2021-01-04] MEDS: Lorazepam 0.5 MG TAB PO PRN (12:02)
[2021-01-05] MEDS ORDERED: Enoxaparin Sodium 30 MG/0.3 ML SYRINGE SC SCH (09:00)
== END 2021-01-04 17:45 | disposition home health service (06) | DRG 597 ==
LOC: ERS 06:43 → ONC 09:28 → IMCU/EMU 12-26 21:56 → ONC 12-27 08:54
PROVIDERS: ADMIT Internal Medicine; ATTEND Family Medicine
PROC: 06HY33Z Insertion of Infusion Device into Lower Vein, Percutaneous Approach (ICD-10-PCS; 2020-12-26)
PROC: 3E0G76Z Introduction of Nutritional Substance into Upper GI, Via Natural or Artificial Opening (ICD-10-PCS; 2020-12-26)
PROC: 3E04305 Introduction of Other Antineoplastic into Central Vein, Percutaneous Approach (ICD-10-PCS; principal; 2020-12-27)
PROC: 0W9930Z Drainage of Right Pleural Cavity with Drainage Device, Percutaneous Approach (ICD-10-PCS; 2020-12-27)
PROC: 3E0333Z Introduction of Anti-inflammatory into Peripheral Vein, Percutaneous Approach (ICD-10-PCS; 2020-12-27)
DX: C50.911 Malignant neoplasm of unspecified site of right female breast (principal); J96.21 Acute and chronic respiratory failure with hypoxia; E43 Unspecified severe protein-calorie malnutrition; J91.0 Malignant pleural effusion; B37.0 Candidal stomatitis; Z68.1 Body mass index [BMI] 19.9 or less, adult; R64 Cachexia; I31.3 Pericardial effusion (noninflammatory); E22.2 Syndrome of inappropriate secretion of antidiuretic hormone; J98.11 Atelectasis; J95.811 Postprocedural pneumothorax; C78.7 Secondary malignant neoplasm of liver and intrahepatic bile duct; C79.51 Secondary malignant neoplasm of bone; Z20.822 Contact with and (suspected) exposure to COVID-19; F41.9 Anxiety disorder, unspecified; E03.9 Hypothyroidism, unspecified; N18.1 Chronic kidney disease, stage 1; R62.7 Adult failure to thrive; I12.9 Hypertensive chronic kidney disease with stage 1 through stage 4 chronic kidney disease, or unspecified chronic kidney disease; K21.9 Gastro-esophageal reflux disease without esophagitis; Y84.8 Other medical procedures as the cause of abnormal reaction of the patient, or of later complication, without mention of misadventure at the time of the procedure; J20.9 Acute bronchitis, unspecified; J02.9 Acute pharyngitis, unspecified; Z99.81 Dependence on supplemental oxygen; Z90.13 Acquired absence of bilateral breasts and nipples; Z79.899 Other long term (current) drug therapy; Z79.810 Long term (current) use of selective estrogen receptor modulators (SERMs); Z80.3 Family history of malignant neoplasm of breast; F12.90 Cannabis use, unspecified, uncomplicated; Z17.0 Estrogen receptor positive status [ER+]
CPT/HCPCS: 36415; 71045; 71275; 80048; 80053; 80069; 81001; 83690; 83735; 83930; 83935; 84295; 84443; 84484; 85025; 87040; 93005; 93010; 94640; 96374; 96375; C1729; C9113; J1100; J1650; J1940; J2060; J2250; J2270; J2405; J2543; J2704; J2930; J3010; J3370; J3490; J7030; J7070; J7131; J7512; J7620; J9267; Q0163; Q0164; Q0167; Q9967; U0002; U0003; U0005

== ENCOUNTER 2021-01-10 09:32 | Outpatient (CLI) | payer BC ==
[2021-01-10] MEDS ORDERED: Magnevist 469MG/ML 20 ML VIAL ONE (12:17)
== END 2021-01-10 09:33 | disposition home or self-care (01) ==
LOC: MRI 09:32
PROVIDERS: ATTEND Internal Medicine Hematology & Oncology
DX: C50.911 Malignant neoplasm of unspecified site of right female breast (principal); R51.9 Headache, unspecified; R90.82 White matter disease, unspecified
CPT/HCPCS: 70553; A9579

== ENCOUNTER 2021-01-22 08:40 | Inpatient (IN) | payer BC ==
[2021-01-22] MEDS ORDERED: Morphine 4 MG/ML VIAL ONE (09:13)
[2021-01-22] MEDS ORDERED: Ondansetron PF 4 MG/2 ML Vial ONE (09:13)
[2021-01-22 09:35] LABS: #Lymphocytes 0.5 thou/uL (1.20-3.40); #Monocytes 0.2 thou/uL (0.11-0.59); #Neutrophils 3.9 thou/uL (1.40-6.50); %Basophils 0.5 % (0.0-1.0); %Eosinophils 0.1 % (0.0-10.0); %Lymphocytes 11.4 % (21.0-51.0); %Monocytes 4.8 % (0.0-10.0); %Neutrophils 83.2 % (42.0-75.0); Hemoglobin 12.5 g/dL (12.0-16.0); Mean Corpuscular HGB CONC 34.9 g/dL (32.0-36.0); Mean Corpuscular Hemoglobin 32.9 pg (27.0-31.0); Mean Corpuscular Volume 94.3 fL (78.0-98.0); Mean Platelet Volume 7.8 fL (7.4-10.4); Platelet Count 354 thou/uL (130-400); RBC Distribution Width 12.9 % (11.5-14.5); White Blood Cell (WBC) Count 4.7 thou/uL (4.8-10.8)
[2021-01-22 09:51] LABS: ALT (SGPT) 36 U/L (8-55); AST (SGOT) 25 U/L (5-34); Albumin 3.5 g/dL (3.5-5.0); Alkaline Phosphatase 82 U/L (40-110); Anion Gap 10 mmol/L (10-20); BUN (Urea Nitrogen) 10 mg/dL (7.0-18.7); Bilirubin, Total 0.6 mg/dL (0.2-1.2); Calc. Creatinine Clearance 0 mL/min (70-130); Calcium 9.3 mg/dL (7.8-10.44); Carbon Dioxide 32 mmol/L (22-29); Chloride 100 mmol/L (98-107); Globulin 2.7 g/dL (2.4-3.5); Glucose 94 mg/dL (70-105); Potassium 4.3 mmol/L (3.5-5.1); Protein, Total 6.2 g/dL (6.0-8.3); Sodium 138 mmol/L (136-145)
[2021-01-22 10:59] LABS: BHCG - Serum Negative (NEGATIVE); Pregs Control Background? CLEAR/WHITE (CLR/WHITE); Pregs Control Bar Appear? YES (CONTROL BAR)
[2021-01-22] MEDS ORDERED: Iopamidol-370 76% 500 ML 1 ML ONE (12:12)
[2021-01-22] MEDS ORDERED: HYDROmorphone 0.5 MG/0.5 ML SYRINGE ONE ×2 (12:32→15:46)
[2021-01-22] MEDS ORDERED: Famotidine/PF 20 mg/2ml Vial ONE (12:58)
[2021-01-22 13:06] LABS: SARS-CoV-2 NAA Rapid Test Not Detected (NotDetected)
[2021-01-22] MEDS ORDERED: Albuterol Sulfate 2.5 mg/3 ml Neb NEB PRN (13:17)
[2021-01-22] MEDS ORDERED: Senokot 8.6 MG TAB PO PRN (13:18)
[2021-01-22] MEDS ORDERED: Ondansetron ODT 8 MG TAB SL PRN (13:19)
[2021-01-22] MEDS ORDERED: HYDROmorphone 0.5 MG/0.5 ML SYRINGE SLOW IVP PRN (13:20)
[2021-01-22 13:41] LABS: INR-International Normal Ratio 0.9; Prothrombin Time 12.7 sec (12.0-14.7)
[2021-01-22 13:42] LABS: PTT 34.1 sec (22.9-36.1)
[2021-01-22 13:44] LABS: Troponin I 0.014 ng/mL (< 0.028)
[2021-01-22] MEDS: Sodium Chloride 0.9% 1,000 ML IV SCH ×2 (14:52→20:57)
[2021-01-22] MEDS: Lorazepam 0.5 MG TAB PO PRN ×2 (15:42→23:17)
[2021-01-22] MEDS: diphenhydrAMINE 50 MG/ML VIAL IVP PRN (17:43)
[2021-01-22] MEDS: Enoxaparin Sodium 30 MG/0.3 ML SYRINGE SC SCH (20:58)
[2021-01-22] MEDS: Saccharomyces boulardii 250 MG CAP PO SCH (20:58)
[2021-01-22] MEDS: Cefepime 2 GM in Sodium Chloride 0.9% 100 ML IVPB SCH (21:59)
[2021-01-22] MEDS ORDERED: Promethazine HCl 12.5 MG in Sodium Chloride 0.9% 50 ML IVPB SCH (23:00)
[2021-01-23] MEDS: Morphine IR 10 MG/5 ML UDCUP PO PRN ×3 (00:07→17:28)
[2021-01-23 04:14] LABS: #Monocytes 0.3 thou/uL (0.11-0.59); #Neutrophils 2.3 thou/uL (1.40-6.50); %Eosinophils 0.6 % (0.0-10.0); %Lymphocytes 27.6 % (21.0-51.0); %Monocytes 6.8 % (0.0-10.0); Mean Corpuscular HGB CONC 34.3 g/dL (32.0-36.0); Mean Corpuscular Hemoglobin 32.7 pg (27.0-31.0); Mean Corpuscular Volume 95.3 fL (78.0-98.0); Mean Platelet Volume 7.5 fL (7.4-10.4); Platelet Count 289 thou/uL (130-400); RBC Distribution Width 13.1 % (11.5-14.5); Red Blood Cell (RBC) Count 3.37 mill/uL (4.20-5.40); White Blood Cell (WBC) Count 3.6 thou/uL (4.8-10.8)
[2021-01-23 04:32] LABS: Anion Gap 9 mmol/L (10-20); BUN (Urea Nitrogen) 8 mg/dL (7.0-18.7); Calc. Creatinine Clearance 117 mL/min (70-130); Calcium 8.8 mg/dL (7.8-10.44); Carbon Dioxide 29 mmol/L (22-29); Chloride 102 mmol/L (98-107); Glucose 79 mg/dL (70-105); Potassium 3.8 mmol/L (3.5-5.1); Sodium 136 mmol/L (136-145)
[2021-01-23] MEDS ORDERED: Loperamide HCl 2 MG CAP PO PRN (06:22)
[2021-01-23] MEDS ORDERED: Senokot S 8.6-50 MG TAB PO PRN (06:22)
[2021-01-23] MEDS ORDERED: Artificial Tear Sol 15 ML BOT EA EYE PRN (06:22)
[2021-01-23] MEDS ORDERED: Benzonatate 100 MG CAP PO PRN (06:22)
[2021-01-23] MEDS ORDERED: Hydrocerin (Eucerin) Cream 120 gm Jar TOP PRN (06:22)
[2021-01-23] MEDS ORDERED: Bisacodyl 5 MG TAB PO PRN (06:22)
[2021-01-23] MEDS ORDERED: GUAIFENESIN SF SOLN 200 MG/10 ML UDCUP PO PRN (06:22)
[2021-01-23] MEDS ORDERED: Ondansetron PF 4 MG/2 ML Vial IVP PRN (06:22)
[2021-01-23] MEDS ORDERED: Cepastat Lozenges 1 LOZ PO PRN (06:22)
[2021-01-23] MEDS ORDERED: Loratadine 10 MG TAB PO PRN (06:22)
[2021-01-23] MEDS ORDERED: hydrALAZINE 20 MG/ML VIAL SLOW IVP PRN (06:22)
[2021-01-23] MEDS ORDERED: Ondansetron ODT 4 MG TAB PO PRN (06:22)
[2021-01-23] MEDS: Saccharomyces boulardii 250 MG CAP PO SCH ×2 (08:00→20:40)
[2021-01-23] MEDS: Lorazepam 0.5 MG TAB PO PRN ×3 (08:00→20:56)
[2021-01-23] MEDS: Polyethylene Glycol 3350 17 GM Packet PO SCH (08:00)
[2021-01-23] MEDS: Cefepime 2 GM in Sodium Chloride 0.9% 100 ML IVPB SCH ×2 (08:09→20:40)
[2021-01-23] MEDS: Sodium Chloride 0.9% 1,000 ML IV SCH ×2 (08:11→20:42)
[2021-01-23] MEDS: diphenhydrAMINE 50 MG/ML VIAL IVP PRN (14:59)
[2021-01-23] MEDS: Sodium Chloride 0.65% Nasal 44 ML BOT EA NARE PRN ×2 (14:59→20:42)
[2021-01-23] MEDS: Enoxaparin Sodium 30 MG/0.3 ML SYRINGE SC SCH (20:56)
[2021-01-24] MEDS: Morphine IR 10 MG/5 ML UDCUP PO PRN ×3 (03:23→20:21)
[2021-01-24] MEDS: Sodium Chloride 0.65% Nasal 44 ML BOT EA NARE PRN ×2 (03:27→16:26)
[2021-01-24 03:53] LABS: #Eosinphils 0.1 thou/uL (0.0-0.7); #Lymphocytes 0.9 thou/uL (1.20-3.40); #Monocytes 0.5 thou/uL (0.11-0.59); #Neutrophils 4.7 thou/uL (1.40-6.50); %Basophils 0.5 % (0.0-1.0); %Eosinophils 0.9 % (0.0-10.0); %Lymphocytes 14.5 % (21.0-51.0); %Monocytes 7.7 % (0.0-10.0); %Neutrophils 76.4 % (42.0-75.0); Hemoglobin 11.8 g/dL (12.0-16.0); Mean Corpuscular HGB CONC 35.7 g/dL (32.0-36.0); Mean Corpuscular Hemoglobin 34.2 pg (27.0-31.0); Mean Corpuscular Volume 95.7 fL (78.0-98.0); Mean Platelet Volume 7.8 fL (7.4-10.4); Platelet Count 270 thou/uL (130-400); RBC Distribution Width 13.1 % (11.5-14.5); Red Blood Cell (RBC) Count 3.46 mill/uL (4.20-5.40); White Blood Cell (WBC) Count 6.1 thou/uL (4.8-10.8)
[2021-01-24 04:09] LABS: Anion Gap 9 mmol/L (10-20); BUN (Urea Nitrogen) 4 mg/dL (7.0-18.7); Calc. Creatinine Clearance 92 mL/min (70-130); Calcium 8.7 mg/dL (7.8-10.44); Carbon Dioxide 32 mmol/L (22-29); Chloride 103 mmol/L (98-107); Glucose 85 mg/dL (70-105); Potassium 3.6 mmol/L (3.5-5.1); Sodium 140 mmol/L (136-145)
[2021-01-24] MEDS: Lorazepam 0.5 MG TAB PO PRN ×2 (07:42→14:00)
[2021-01-24] MEDS: Cefepime 2 GM in Sodium Chloride 0.9% 100 ML IVPB SCH ×2 (08:14→20:20)
[2021-01-24] MEDS: Polyethylene Glycol 3350 17 GM Packet PO SCH (08:15)
[2021-01-24] MEDS: Saccharomyces boulardii 250 MG CAP PO SCH ×2 (08:15→20:20)
[2021-01-24] MEDS: Sodium Chloride 0.9% 1,000 ML IV SCH (08:16)
[2021-01-24] MEDS: Enoxaparin Sodium 30 MG/0.3 ML SYRINGE SC SCH (20:20)
[2021-01-25 03:55] LABS: #Eosinphils 0.1 thou/uL (0.0-0.7); #Lymphocytes 0.6 thou/uL (1.20-3.40); #Monocytes 0.7 thou/uL (0.11-0.59); %Basophils 0.4 % (0.0-1.0); %Lymphocytes 9.6 % (21.0-51.0); %Monocytes 11.1 % (0.0-10.0); %Neutrophils 77.9 % (42.0-75.0); Hemoglobin 10.9 g/dL (12.0-16.0); Mean Corpuscular HGB CONC 34.5 g/dL (32.0-36.0); Mean Corpuscular Hemoglobin 32.8 pg (27.0-31.0); Mean Platelet Volume 7.7 fL (7.4-10.4); Platelet Count 269 thou/uL (130-400); Red Blood Cell (RBC) Count 3.31 mill/uL (4.20-5.40); White Blood Cell (WBC) Count 6.4 thou/uL (4.8-10.8)
[2021-01-25 04:15] LABS: Anion Gap 8 mmol/L (10-20); BUN (Urea Nitrogen) 4 mg/dL (7.0-18.7); Calc. Creatinine Clearance 99 mL/min (70-130); Calcium 8.8 mg/dL (7.8-10.44); Carbon Dioxide 36 mmol/L (22-29); Chloride 98 mmol/L (98-107); Glucose 90 mg/dL (70-105); Potassium 3.7 mmol/L (3.5-5.1); Sodium 138 mmol/L (136-145)
[2021-01-25] MEDS: Lorazepam 0.5 MG TAB PO PRN ×2 (05:16→11:48)
[2021-01-25] MEDS: Sodium Chloride 0.65% Nasal 44 ML BOT EA NARE PRN (05:18)
[2021-01-25 08:23] VITALS: BP 129/103; TEMP 98.7
[2021-01-25] MEDS: Polyethylene Glycol 3350 17 GM Packet PO SCH (08:27)
[2021-01-25] MEDS: Saccharomyces boulardii 250 MG CAP PO SCH (08:27)
[2021-01-25] MEDS: Cefepime 2 GM in Sodium Chloride 0.9% 100 ML IVPB SCH (09:17)
[2021-01-25 13:26] VITALS: BMI 15.1
== END 2021-01-25 12:35 | disposition home or self-care (01) | DRG 177 ==
LOC: SUATTDRO 08:40 → ERS 08:40 → ONC 13:03
PROVIDERS: ADMIT Family Medicine; ATTEND Internal Medicine
DX: J15.6 Pneumonia due to other Gram-negative bacteria (principal); E43 Unspecified severe protein-calorie malnutrition; J96.21 Acute and chronic respiratory failure with hypoxia; J96.22 Acute and chronic respiratory failure with hypercapnia; C78.7 Secondary malignant neoplasm of liver and intrahepatic bile duct; C78.02 Secondary malignant neoplasm of left lung; C78.01 Secondary malignant neoplasm of right lung; C79.51 Secondary malignant neoplasm of bone; C79.31 Secondary malignant neoplasm of brain; Z68.1 Body mass index [BMI] 19.9 or less, adult; Z20.822 Contact with and (suspected) exposure to COVID-19; M89.9 Disorder of bone, unspecified; R62.7 Adult failure to thrive; C50.919 Malignant neoplasm of unspecified site of unspecified female breast; F41.9 Anxiety disorder, unspecified; F32.A Depression, unspecified; E05.90 Thyrotoxicosis, unspecified without thyrotoxic crisis or storm; Z83.79 Family history of other diseases of the digestive system; Z80.41 Family history of malignant neoplasm of ovary; Z90.13 Acquired absence of bilateral breasts and nipples; Z79.891 Long term (current) use of opiate analgesic; Z82.49 Family history of ischemic heart disease and other diseases of the circulatory system
CPT/HCPCS: 0240U; 36415; 71275; 80048; 80053; 82533; 83605; 84145; 84484; 84703; 85025; 85610; 85730; 86140; 87040; 93005; 94640; 94760; 96374; 96375; J0692; J1170; J1200; J1650; J1956; J2270; J2405; J2550; J3490; J7050; J7620; Q0162; Q9967; S0028

== ENCOUNTER → 2021-03-27 | Outpatient (CLI) | payer BC | LOC: PET 08:00 | PROVIDERS: ATTEND Internal Medicine Hematology & Oncology | DX: C50.911 Malignant neoplasm of unspecified site of right female breast (principal); C79.51 Secondary malignant neoplasm of bone; C79.89 Secondary malignant neoplasm of other specified sites; J90 Pleural effusion, not elsewhere classified | CPT/HCPCS: 78815; A9552 ==

== ENCOUNTER 2021-04-23 14:35 | Outpatient (CLI) | payer BC | END 2021-04-23 14:36 | disposition home or self-care (01) | LOC: RAD 14:35 | PROVIDERS: ATTEND Thoracic Surgery (Cardiothoracic Vascular Surgery) | DX: I31.3 Pericardial effusion (noninflammatory) (principal) | CPT/HCPCS: 71046 ==

== ENCOUNTER 2021-05-02 23:00 | Emergency (ER) | payer BC ==
[2021-05-03 00:40] LABS: Hemoglobin 13.1 g/dL (12.0-16.0); Mean Corpuscular HGB CONC 33.7 g/dL (32.0-36.0); Mean Corpuscular Hemoglobin 33.2 pg (27.0-31.0); Mean Corpuscular Volume 98.3 fL (78.0-98.0); Mean Platelet Volume 7.7 fL (7.4-10.4); Platelet Count 257 thou/uL (130-400); RBC Distribution Width 13.2 % (11.5-14.5); Red Blood Cell (RBC) Count 3.96 mill/uL (4.20-5.40); White Blood Cell (WBC) Count 5.5 thou/uL (4.8-10.8)
[2021-05-03 00:47] LABS: ALT (SGPT) 77 U/L (8-55); AST (SGOT) 47 U/L (5-34); Albumin 4.3 g/dL (3.5-5.0); Alkaline Phosphatase 104 U/L (40-110); Anion Gap 14 mmol/L (10-20); BUN (Urea Nitrogen) 16 mg/dL (7.0-18.7); Bilirubin, Total 0.3 mg/dL (0.2-1.2); Calc. Creatinine Clearance 0 mL/min (70-130); Calcium 9.2 mg/dL (7.8-10.44); Carbon Dioxide 26 mmol/L (22-29); Chloride 105 mmol/L (98-107); Globulin 2.7 g/dL (2.4-3.5); Glucose 77 mg/dL (70-105); Potassium 4.3 mmol/L (3.5-5.1); Sodium 141 mmol/L (136-145)
[2021-05-03] MEDS ORDERED: Cefepime 2 GM VIAL ONE (00:57)
[2021-05-03 01:13] LABS: Band 9 % (5-11); Eosinophils 3 % (0-10); Lymphocytes 26 % (21-51); MDiff Complete? YES; Monocytes 6 % (0-10); Neutrophil 54 % (42-75)
[2021-05-03] MEDS ORDERED: Vancomycin 1 GM/200 ML BAG ONE (01:31)
[2021-05-03] MEDS ORDERED: diphenhydrAMINE 50 MG/ML VIAL ONE (01:59)
== END 2021-05-03 02:56 | disposition home or self-care (01) ==
LOC: ERS 23:00
DX: T81.40XA Infection following a procedure, unspecified, initial encounter (principal)
CPT/HCPCS: 36415; 71045; 80053; 83605; 85025; 85652; 86140; 87040; 96374; 96375; J0692; J1200; J3370

== ENCOUNTER 2021-05-07 08:00 | Outpatient (CLI) | payer BC ==
[2021-05-07 17:28] LABS: SARS-CoV-2 PCR by NAA Not Detected (NotDetected)
== END 2021-05-07 08:01 | disposition home or self-care (01) ==
LOC: LABBT 08:00
PROVIDERS: ATTEND Thoracic Surgery (Cardiothoracic Vascular Surgery)
DX: Z20.822 Contact with and (suspected) exposure to COVID-19 (principal)
CPT/HCPCS: U0003; U0005

== ENCOUNTER 2021-05-12 05:44 | Day surgery (SDC) | payer BC ==
[2021-05-07 11:32] VITALS: BMI 18.3
[2021-05-12] MEDS ORDERED: Lidocaine 1% (PF) 30 ML VIAL ONE (06:25)
[2021-05-12] MEDS ORDERED: Midazolam HCl 2 mg/2 ml Vial ONE (06:37)
[2021-05-12] MEDS ORDERED: Fentanyl 250 MCG/5 ML VIAL ONE (06:37)
[2021-05-12] MEDS ORDERED: PROPOFOL 200 MG/20 ML VIAL ONE (07:00)
[2021-05-12] MEDS ORDERED: Lidocaine 1% PF 5 ML VIAL ONE (07:00)
== END 2021-05-12 08:03 | disposition home or self-care (01) ==
LOC: SDC 05:44
PROVIDERS: ATTEND Thoracic Surgery (Cardiothoracic Vascular Surgery)
PROC: 0WP903Z Removal of Infusion Device from Right Pleural Cavity, Open Approach (ICD-10-PCS; principal; 2021-05-12)
DX: Z46.82 Encounter for fitting and adjustment of non-vascular catheter (principal); R64 Cachexia; Z68.1 Body mass index [BMI] 19.9 or less, adult; Z85.3 Personal history of malignant neoplasm of breast; Z79.899 Other long term (current) drug therapy; Z88.1 Allergy status to other antibiotic agents
CPT/HCPCS: J2001; J2250; J3010

== ENCOUNTER 2021-07-01 10:15 | Outpatient (CLI) | payer BC | END 2021-07-01 10:16 | disposition home or self-care (01) | LOC: PET 10:15 | PROVIDERS: ATTEND Internal Medicine Hematology & Oncology | DX: C50.911 Malignant neoplasm of unspecified site of right female breast (principal); J90 Pleural effusion, not elsewhere classified | CPT/HCPCS: 78815; A9552 ==

== ENCOUNTER 2021-07-15 12:53 | Outpatient (CLI) | payer BC | END 2021-07-15 12:54 | disposition home or self-care (01) | LOC: TBSIIMAG 12:53 | PROVIDERS: ATTEND Radiology Radiation Oncology | DX: C79.31 Secondary malignant neoplasm of brain (principal) | CPT/HCPCS: 70553 ==

== ENCOUNTER 2021-09-29 10:15 | Outpatient (CLI) | payer BC | END 2021-09-29 10:16 | disposition home or self-care (01) | LOC: PET 10:15 | PROVIDERS: ATTEND Internal Medicine Hematology & Oncology | DX: C50.911 Malignant neoplasm of unspecified site of right female breast (principal); C79.51 Secondary malignant neoplasm of bone; C78.00 Secondary malignant neoplasm of unspecified lung | CPT/HCPCS: 78815; A9552 ==

== ENCOUNTER 2022-03-17 11:23 | Outpatient (CLI) | payer BC ==
[~2022-03-17 11:23] MED LIST: Magnevist 469MG/ML 20 ML VIAL ONE
== END 2022-03-17 11:24 | disposition home or self-care (01) ==
LOC: PET 11:23
PROVIDERS: ATTEND Internal Medicine Hematology & Oncology
DX: C50.911 Malignant neoplasm of unspecified site of right female breast (principal); D70.9 Neutropenia, unspecified; J34.89 Other specified disorders of nose and nasal sinuses; R16.0 Hepatomegaly, not elsewhere classified; C79.51 Secondary malignant neoplasm of bone
CPT/HCPCS: 70553; 78815; A9552; A9579

== ENCOUNTER 2022-09-29 08:00 | Outpatient (CLI) | payer BC | END 2022-09-29 08:01 | LOC: PET 08:00 | PROVIDERS: ATTEND Internal Medicine Hematology & Oncology | DX: C50.911 Malignant neoplasm of unspecified site of right female breast (principal); C71.9 Malignant neoplasm of brain, unspecified | CPT/HCPCS: 78815; A9552 ==

== ENCOUNTER 2023-03-09 08:45 | Outpatient (CLI) | payer BC | END 2023-03-09 08:46 | disposition home or self-care (01) | LOC: PET 08:45 | PROVIDERS: ATTEND Internal Medicine Hematology & Oncology | DX: C50.911 Malignant neoplasm of unspecified site of right female breast (principal); C77.9 Secondary and unspecified malignant neoplasm of lymph node, unspecified; C78.00 Secondary malignant neoplasm of unspecified lung; C79.51 Secondary malignant neoplasm of bone; C79.89 Secondary malignant neoplasm of other specified sites | CPT/HCPCS: 78815; A9552 ==

== ENCOUNTER 2023-08-26 13:07 | Outpatient (CLI) | payer MEDICARE, BC | END 2023-08-26 13:08 | disposition home or self-care (01) | LOC: RAD 13:07 | PROVIDERS: ATTEND Student in an Organized Health Care Education/Training Program | DX: I31.39 Other pericardial effusion (noninflammatory) (principal); J98.4 Other disorders of lung; Z97.8 Presence of other specified devices; Z98.890 Other specified postprocedural states | CPT/HCPCS: 71046 ==

== ENCOUNTER 2023-09-22 09:26 | Outpatient (CLI) | payer OTHER, MEDICARE ==
[2023-09-22 11:16] LABS: Hematocrit 31.8 % (34.9-44.5); Hemoglobin 10.5 g/dL (12.0-15.5); Mean Corpuscular Hemoglobin 31.9 pg (27.0-33.0); Mean Corpuscular Volume 96.7 fL (81.6-98.3); Mean Platelet Volume 10.5 fL (7.4-10.4); Platelet Count 313 10x3/uL (150-450); RBC Distribution Width 15.5 % (11.5-14.5); Red Blood Cell (RBC) Count 3.29 10x6/uL (3.90-5.03); White Blood Cell (WBC) Count 5.5 10x3/uL (3.5-10.5)
== END 2023-09-22 09:27 | disposition home or self-care (01) ==
LOC: LABBT 09:26
PROVIDERS: ATTEND Student in an Organized Health Care Education/Training Program
DX: Z01.818 Encounter for other preprocedural examination (principal); Z46.82 Encounter for fitting and adjustment of non-vascular catheter
CPT/HCPCS: 85027; 93005; 93010

== ENCOUNTER 2023-09-23 05:55 | Day surgery (SDC) | payer MEDICARE, OTHER ==
[2023-09-22 10:11] VITALS: BMI 18.1
[2023-09-23] MEDS ORDERED: Sodium Chloride 0.9% 100 ML ONE (06:47)
[2023-09-23] MEDS ORDERED: CEFAZOLIN 2 GM VIAL ONE (06:47)
[2023-09-23] MEDS ORDERED: Ondansetron PF 4 MG/2 ML Vial ONE (07:02)
[2023-09-23] MEDS ORDERED: PROPOFOL 40 ML ONE (07:02)
[2023-09-23] MEDS ORDERED: Dexamethasone 4 mg/ml Vial ONE (07:02)
[2023-09-23] MEDS ORDERED: fentaNYL PF 100 MCG/2 ML SYRINGE ONE (07:02)
== END 2023-09-23 09:24 | disposition home or self-care (01) ==
LOC: SDC 05:55
PROVIDERS: ATTEND Student in an Organized Health Care Education/Training Program
PROC: 0WPB30Z Removal of Drainage Device from Left Pleural Cavity, Percutaneous Approach (ICD-10-PCS; principal; 2023-09-23)
DX: J91.0 Malignant pleural effusion (principal); E05.90 Thyrotoxicosis, unspecified without thyrotoxic crisis or storm; Z85.3 Personal history of malignant neoplasm of breast; Z79.899 Other long term (current) drug therapy; Z88.1 Allergy status to other antibiotic agents
CPT/HCPCS: 32552; 71045; J1100; J2405; J2704; J3490

== ENCOUNTER 2023-09-30 11:00 | Outpatient (CLI) | payer OTHER, MEDICARE | END 2023-09-30 11:01 | disposition home or self-care (01) | LOC: PET 11:00 | PROVIDERS: ATTEND Internal Medicine Hematology & Oncology | DX: C50.911 Malignant neoplasm of unspecified site of right female breast (principal); C79.51 Secondary malignant neoplasm of bone; C77.9 Secondary and unspecified malignant neoplasm of lymph node, unspecified; C78.00 Secondary malignant neoplasm of unspecified lung | CPT/HCPCS: 78815; A9552 ==

== ENCOUNTER 2023-12-29 13:15 | Outpatient (CLI) | payer OTHER, MEDICARE | END 2023-12-29 13:16 | disposition home or self-care (01) | LOC: PET 13:15 | PROVIDERS: ATTEND Internal Medicine Hematology & Oncology | DX: C50.911 Malignant neoplasm of unspecified site of right female breast (principal); C78.00 Secondary malignant neoplasm of unspecified lung; C79.51 Secondary malignant neoplasm of bone; C78.7 Secondary malignant neoplasm of liver and intrahepatic bile duct; N63.22 Unspecified lump in the left breast, upper inner quadrant | CPT/HCPCS: 78815; A9552 ==

== ENCOUNTER 2024-11-16 08:00 | Outpatient (CLI) | payer OTHER, MEDICARE | END 2024-11-16 08:01 | disposition home or self-care (01) | LOC: PET 08:00 | PROVIDERS: ATTEND Internal Medicine Hematology & Oncology | DX: C50.911 Malignant neoplasm of unspecified site of right female breast (principal); D70.8 Other neutropenia | CPT/HCPCS: 78815; A9552 ==

== ENCOUNTER 2025-01-11 08:02 | Outpatient (CLI) | payer OTHER, MEDICARE | END 2025-01-11 08:03 | disposition home or self-care (01) | LOC: ULT 08:02 | PROVIDERS: ATTEND Nurse Practitioner Adult Health | DX: C50.911 Malignant neoplasm of unspecified site of right female breast (principal); D70.8 Other neutropenia ==

== ENCOUNTER 2025-01-29 11:13 | Outpatient (CLI) | payer OTHER, MEDICARE | END 2025-01-29 11:14 | disposition home or self-care (01) | LOC: SCSRAD 11:13 | PROVIDERS: ATTEND Nurse Practitioner Family | DX: R05.1 Acute cough (principal); Z98.890 Other specified postprocedural states | CPT/HCPCS: 71046 ==

== ENCOUNTER 2025-03-06 10:02 | Emergency (ER) | payer OTHER, MEDICARE ==
[2025-03-06] MEDS ORDERED: Ondansetron PF 4 MG/2 ML Vial ONE (10:55)
[2025-03-06 11:41] LABS: #Basophils 0.07 10x3/uL (0.0-0.2); #Eosinophils 0.19 10x3/uL (0.0-0.7); #Monocytes 1.04 10x3/uL (0.11-0.59); #Neutrophils 5.27 10x3/uL (1.40-6.50); %Basophils 1.0 % (0.0-1.0); %Eosinophils 2.7 % (0.0-10.0); %Lymphocytes 6.7 % (21.0-51.0); %Monocytes 14.7 % (0.0-10.0); %Neutrophils 74.6 % (42.0-75.0); Hematocrit 44.3 % (36.0-47.0); Hemoglobin 14.3 g/dL (12.0-16.0); Mean Corpuscular Hemoglobin 30.3 pg (27.0-31.0); Mean Corpuscular Volume 93.9 fL (78.0-98.0); Platelet Count 212 10x3/uL (130-400); Red Blood Cell (RBC) Count 4.72 mill/uL (4.20-5.40); White Blood Cell (WBC) Count 7.06 10x3/uL (4.8-10.8)
[2025-03-06 11:55] LABS: BHCG - Serum Negative (NEGATIVE); Pregs Control Background? CLEAR/WHITE (CLR/WHITE); Pregs Control Bar Appear? YES (CONTROL BAR)
[2025-03-06 12:03] LABS: ALT (SGPT) 39 U/L (Less than 34); AST (SGOT) 84 U/L (11-34); Albumin 4.0 g/dL (3.1-4.5); Alkaline Phosphatase 260 U/L (40-110); Anion Gap 17 mmol/L (10-20); BUN (Urea Nitrogen) 12 mg/dL (7.0-18.7); Bilirubin, Total 1.0 mg/dL (0.3-1.2); Calc. Creatinine Clearance 0 mL/min (70-130); Calcium 9.9 mg/dL (7.8-10.44); Carbon Dioxide 23 mmol/L (22-29); Chloride 103 mmol/L (98-107); Globulin 4.2 g/dL (2.4-3.5); Glucose 61 mg/dL (70-105); Lipase 21 U/L (8-78); Potassium 4.6 mmol/L (3.5-5.1); Sodium 138 mmol/L (136-145)
[2025-03-06 15:31] LABS: INR-International Normal Ratio 1.0; Prothrombin Time 13.3 sec (12.0-14.7)
[2025-03-06 15:32] LABS: PTT 35.9 sec (22.9-36.1)
[2025-03-06 16:45] LABS: Bacteria/HPF None Seen HPF (None Seen); CAUTI Indications for Culture Immunosuppressed; Glucose, Urine (Dipstick) Normal (Negative); Leukocyte Negative Leu/uL (Negative); Protein, Urine (Dipstick) Negative (Neg-Trace); RBC/HPF 0-3 HPF (0-3); WBC/HPF 0-3 HPF (0-3)
[2025-03-06 16:46] LABS: Specific Gravity, Urine Greater than 1.050 (1.002-1.036)
[2025-03-06 16:47] LABS: Urine Culture Reflex Yes Yes
== END 2025-03-06 16:16 | disposition home or self-care (01) ==
LOC: ERS 10:02
DX: R10.12 Left upper quadrant pain (principal); C79.81 Secondary malignant neoplasm of breast
CPT/HCPCS: 74177; 80053; 81001; 83605; 83690; 84703; 85025; 85610; 85730; 87086; 96374; 96375; 96376; J2270; J2405